=== PATIENT | female | born 1960 | race Two or more races ===

== ENCOUNTER 2017-07-01 12:23 | Inpatient (IN) | payer MEDICARE, OTHER ==
[~2017-07-01] VITALS: Ht 160 cm; Wt 49.9 kg
[2017-07-01] MEDS ORDERED: TEMAZEPAM 7.5 MG CAPSULE PO PRN (18:00)
[2017-07-01] MEDS ORDERED: LORAZEPAM 0.5 MG TABLET PO PRN (18:00)
[2017-07-01] MEDS ORDERED: ACETAMINOPHEN 325 MG TABLET PO PRN (18:00)
[2017-07-01] MEDS ORDERED: MAG HYDROX/AL HYDROX/SIMETH 30 ML UDC PO PRN (18:00)
[2017-07-01] MEDS ORDERED: MAGNESIUM HYDROXIDE 30 ML UDC PO PRN (18:00)
[2017-07-01] MEDS ORDERED: FURO-145 PO (18:03)
[2017-07-01] MEDS ORDERED: IBUP-1955 PO (18:03)
[2017-07-01] MEDS ORDERED: MELA5TAB PO (18:03)
[2017-07-01] MEDS ORDERED: CHOL100044 PO (18:03)
[2017-07-01] MEDS ORDERED: ASPI81TA2 PO (18:03)
[2017-07-01] MEDS ORDERED: POTA10CA43 PO (18:03)
[2017-07-01] MEDS ORDERED: CLOP75TA2 PO (18:03)
[2017-07-01] MEDS ORDERED: PROG200C3 PO (18:03)
[2017-07-01] MEDS ORDERED: [UNRECOGNIZED DRUG - CODE] PO (18:03)
[2017-07-01] MEDS ORDERED: METO-295 PO (18:03)
[2017-07-01] MEDS ORDERED: OMEP20CA10 PO (18:03)
[2017-07-01] MEDS ORDERED: MULT-1168 PO (18:03)
--- NOTE | 2017-07-01 18:16 | NUR ---
DR. GUTIERREZ MADE AWARE OF THE ADMISSION AND GAVE ORDERS AND GENESIS RANDALL MADE AWARE OF THE ADMISSION AND TOLD TO RECONCILE MEDS AND SAID OK.
--- NOTE | 2017-07-01 18:20 | NUR ---
CALLED SHRUTHI SHEEHAN AT [phone] FOR THE NOTIFICATION OF THE ADMISSION AND NO ANSWER AND LEFT A MESSAGE.
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
[2017-07-01 18:34] VITALS: BP 111/88
[2017-07-01 20:00] VITALS: BP 135/84
[2017-07-01] MEDS: IBUPROFEN 600 MG TABLET PO SCH (21:00)
[2017-07-01] MEDS: METOCLOPRAMIDE HCL 10 MG TABLET PO SCH (21:00)
[2017-07-01] MEDS: FAMOTIDINE (20 MG) 20 MG TABLET PO SCH (21:00)
[2017-07-01] MEDS: PROGESTERONE,MICRONIZED 100 MG CAPSULE PO SCH (21:20)
[2017-07-02 00:31] VITALS: BP 127/68
[2017-07-02 07:35] LABS: ALBUMIN 3.3 g/dL (3.4-5.0); BILIRUBIN,TOTAL 0.5 mg/dL (0.2-1.0); CALCIUM, SERUM 9.1 mg/dL (8.5-10.1); CREATININE 0.6 mg/dL (0.6-1.3); POTASSIUM 3.7 mmol/L (3.5-5.1); TOTAL PROTEIN, SERUM 6.8 g/dL (6.4-8.2)
[2017-07-02 08:00] VITALS: BP 136/90
[2017-07-02] MEDS: ASPIRIN 81 MG TAB.CHEW PO SCH (08:42)
[2017-07-02] MEDS: DOCUSATE SODIUM 250 MG CAPSULE PO SCH (08:42)
[2017-07-02] MEDS: CHOLECALCIFEROL 1,000 UNIT TABLET (VIT D3) PO SCH (08:43)
[2017-07-02] MEDS: METOCLOPRAMIDE HCL 10 MG TABLET PO SCH ×4 (08:43→21:00)
[2017-07-02] MEDS: IBUPROFEN 600 MG TABLET PO SCH ×4 (08:43→21:00)
[2017-07-02] MEDS: FAMOTIDINE (20 MG) 20 MG TABLET PO SCH ×2 (08:43→21:00)
[2017-07-02] MEDS: CLOPIDOGREL BISULFATE 75 MG TABLET PO SCH (08:43)
[2017-07-02] MEDS ORDERED: POTASSIUM CHLORIDE 20 MEQ TAB.PRT.SR PO SCH (09:00)
[2017-07-02] MEDS ORDERED: FUROSEMIDE 20 MG TABLET PO SCH (09:00)
[2017-07-02] MEDS ORDERED: DOCUSATE CALCIUM (240 MG) 240 MG CAPSULE PO SCH (09:00)
[2017-07-02] MEDS: SERTRALINE HCL 25 MG TABLET PO SCH (12:42)
--- NOTE | 2017-07-02 13:59 | NUR ---
[id number]: NOTIFIED DR. RANDALL ABOUT LAB RESULTS: NA= 146, ALBUMIN = 3.3, LDL CHOLESTEROL= 114 AND PT REFUSED BREAKFAST AND LUNCH. DR. RANDALL ORDERED BOOST CHOCOLATE BID.
[2017-07-02 15:40] VITALS: BP 120/74
[2017-07-02] MEDS: BOOST PLUS FOOD-CHOCLATE 237 ML BOX PO SCH (17:00)
--- NOTE | 2017-07-02 18:13 | NUR ---
[id number]: NOTIFIED DR. GENESIS RANDALL ABOUT PT REFUSING TO EAT DINNER AND DRINK BOOST. NO NEW ORDERS GIVEN AT THIS TIME
[2017-07-02 20:17] VITALS: BP 112/71
[2017-07-02] MEDS: PROGESTERONE,MICRONIZED 100 MG CAPSULE PO SCH (21:28)
[2017-07-03] MEDS: BOOST PLUS FOOD-CHOCLATE 237 ML BOX PO SCH ×2 (08:00→15:56)
[2017-07-03 08:11] VITALS: BP 100/53
[2017-07-03] MEDS: ASPIRIN 81 MG TAB.CHEW PO SCH (08:18)
[2017-07-03] MEDS: CLOPIDOGREL BISULFATE 75 MG TABLET PO SCH (08:19)
[2017-07-03] MEDS: CHOLECALCIFEROL 1,000 UNIT TABLET (VIT D3) PO SCH (08:20)
[2017-07-03] MEDS: DOCUSATE SODIUM 250 MG CAPSULE PO SCH (08:26)
[2017-07-03] MEDS: METOCLOPRAMIDE HCL 10 MG TABLET PO SCH ×4 (08:26→21:00)
[2017-07-03] MEDS: IBUPROFEN 600 MG TABLET PO SCH ×4 (08:26→21:00)
[2017-07-03] MEDS: FAMOTIDINE (20 MG) 20 MG TABLET PO SCH ×2 (08:26→21:00)
[2017-07-03 09:48] LABS: APPEARANCE,URINE CLOUDY (CLEAR); BILIRUBIN,URINE 1+ (NEGATIVE); BLOOD, URINE NEGATIVE Ery/uL (NEGATIVE); COLOR,URINE DARK YELLO (YELLOW); KETONES,URINE 3+ (NEGATIVE); LEUKOCYTE ESTERASE ,URINE TRACE (NEGATIVE); NITRITE, URINE NEGATIVE (NEGATIVE); PROTEIN,URINE TRACE mg/dl (NEGATIVE); UGLUCOSE NEGATIVE (NEGATIVE); UROBILINOGEN,URINE 0.2 EU/dL (0.2)
--- NOTE | 2017-07-03 10:20 | NUR ---
[id number]: BLOOD SUGAR IS 44 MG/DL AND NOTIFIED DR. HARP ORDERED D5NS 1,000 ML IV. PT REFUSED TO HAVE IV STARTED . AFTER CONVINCING PT AGREED TO EAT A CUP OF ICE-CREAM AND ONE CUP OF ORANGE JUICE WITH SUGAR.
[2017-07-03 10:24] LABS: BACTERIA,URINE Few /HPF (None Seen); MUCUS,URINE Many /LPF (None Seen); RBC,URINE NONE SEEN /HPF (0-2); SQUAMOUS EPITHELIAL CELL,UR None Seen /HPF (None Seen); WBC,URINE 0-2 /HPF (0-3)
[2017-07-03] MEDS ORDERED: IV D5/ 0.9% NACL 1,000 ML IV ONE (10:30)
--- NOTE | 2017-07-03 10:30 | NUR ---
[id number]: DR. HARP ORDERED TO HOLD D5 NS 1,000 ML, IF PT CONTINUES TO EAT THE ICE CREAM.
--- NOTE | 2017-07-03 11:30 | NUR ---
[id number]: NOTIFIED DR. HARP ABOUT LAB RESULTS ON 07/03/17: URINE APPEARANCE= CLOUDY, URINE KETONES= 3+H, URINE BILIRUBIN= 1+H. NO NEW ORDERS GIVEN
--- NOTE | 2017-07-03 11:53 | NUR ---
[id number]: BLOOD SUGAR IS 44 MG/DL. GAVE PT ANOTHER CUP OF ORANGE WITH 2 PACKETS OF SUGAR.
[2017-07-03] MEDS: SERTRALINE HCL 25 MG TABLET PO SCH (13:00)
--- NOTE | 2017-07-03 15:34 | NUR ---
Received a message from Chuck Cody that had called and complained. This gag writer called him at [phone] as assigned social security benefits interviewer could not be reached at the time. He said he was living in [place] now and that has an apartment in [place]. She is soon to be moving to [place] per . He said he was recording every conversation with our facility and the conversation he was having with this social security benefits interviewer. Dr Macias was consulted and will discharge this pt. tomorrow. Sanitation Superintendent called Michael [phone] to arrange transportation tomorrow. He said they will arrive around 11.30 am on Jul.04. Emily agreed to arranger follow up and discharge.
[2017-07-03 16:00] VITALS: BP 108/76
--- NOTE | 2017-07-03 16:56 | NUR ---
Initial Discharge Plan: Pt resides at [address], [place] [id number]; [facility]. Pt lives with one other roomate however reports "not having any relationship" with her. Pt would like to return home upon discharge. SANDY spoke to Georgie Beaulieu who discussed pts discharge plan with pts . Pt will be discharged tomorrow,07/04/17 at 11:30 am. Michael will arrange for transportation. Pts , Kaushal has been notified of pts discharge plan. Sw will follow up and ensure pt is properly discharged.
[2017-07-03 20:04] VITALS: BP 107/84
--- NOTE | 2017-07-03 20:10 | NUR ---
GPS RN NOTE: PATIENT BS = 55, PATIENT AWAKE, ALERT AND ORIENTED X3, OFFERED OJ, SANDWICH. PATIENT REFUSED AND WANTED ICE CREAM. ACCORDING TO THE PATIENT, ICE CREAM IS THE PROMISE OF THE DOCTOR TO HER. ICE CREAM PROVIDED, WILL RECHECK BLOOD SUGAR POST 30MINS. WILL CONTINUE TO MONITOR Addendum: 07/03/17 at 2100 by JOSUE WRIGHT II, RN CORRECTION: BS = 53 AND NOT 55
--- NOTE | 2017-07-03 20:40 | NUR ---
GPS RN NOTE: RECHECKED PATIENT BLOOD SUGAR = 37, PATIENT STILL REFUSED SANDWICH AND ORANGE JUICE. PER PATIENT SHE IS GOING TO EAT HER ICE CREAM. NOTIFIED DR. RAWLS AND SINAI SAID TO NOTIFY THE PSYCH DOCTOR BECAUSE THAT IS A MENTAL ISSUE THAT IS INTERFERING WITH THE MEDICAL ISSUES. LEFT MESSAGE TO DR. GUTIERREZ..
[2017-07-03] MEDS: PROGESTERONE,MICRONIZED 100 MG CAPSULE PO SCH (22:00)
--- NOTE | 2017-07-03 22:00 | NUR ---
gps rn note Patient refused pm scheduled medications. Explained the risk and benefits but patient still refused. Patient alert and oriented x 3. Respected patient's rights
--- NOTE | 2017-07-03 22:10 | NUR ---
GPS RN NOTE: PATIENT REQUESTED HER BLOOD SUGAR TO BE CHECKED AND AGREED FOR IV INSERTION AND D50 ADMINISTRATION IF THE BLOOD SUGAR IS STILL LOW. PATIENT IS ASYMPTOMATIC. BS = 106. PATIENT NOTED TO BE VERY HAPPY OF THE RESULT. WILL CONTINUE TO MONITOR
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
[2017-07-04 07:07] LABS: BASOPHILS % (AUTO) 0.8 % (0.0-2.0); EOSINOPHILS # (AUTO) 0.1 /CMM (0.0-0.7); EOSINOPHILS % (AUTO) 2.5 % (0.0-6.0); HEMATOCRIT 45 % (33-45); HEMOGLOBIN 14.6 g/dL (11.5-14.8); LYMPHOCYTES # (AUTO) 1.1 /CMM (0.8-4.8); LYMPHOCYTES % (AUTO) 22.5 % (20.0-44.0); MEAN CORPUSCULAR HEMOGLOBIN 31 PG (26.0-33.0); MEAN CORPUSCULAR HGB CONC 33 g/dl (31.0-36.0); MEAN CORPUSCULAR VOLUME 94 fL (82-100); MONOCYTES # (AUTO) 0.4 /CMM (0.1-1.30); NEUTROPHILS # (AUTO) 3.2 /CMM (1.8-8.9); NEUTROPHILS % (AUTO) 66.2 % (43.0-81.0); PLATELET COUNT (AUTO) 140 /CMM (150-450); RDW COEFFICIENT OF VARIATION 13.5 (11.5-15.0); RED BLOOD CELL COUNT(AUTO) 4.75 MIL/uL (4.0-5.2); WHITE BLOOD COUNT (AUTO) 4.8 K/uL (4.3-11.0)
[2017-07-04 07:23] LABS: CALCIUM, SERUM 9.3 mg/dL (8.5-10.1); CREATININE 0.9 mg/dL (0.6-1.3); POTASSIUM 3.6 mmol/L (3.5-5.1)
[2017-07-04] MEDS: BOOST PLUS FOOD-CHOCLATE 237 ML BOX PO SCH ×2 (08:00→17:00)
[2017-07-04 08:27] VITALS: BP 95/60
[2017-07-04] MEDS: ASPIRIN 81 MG TAB.CHEW PO SCH (08:40)
[2017-07-04] MEDS: CLOPIDOGREL BISULFATE 75 MG TABLET PO SCH (08:40)
[2017-07-04] MEDS: CHOLECALCIFEROL 1,000 UNIT TABLET (VIT D3) PO SCH (08:40)
[2017-07-04] MEDS: FAMOTIDINE (20 MG) 20 MG TABLET PO SCH ×2 (08:42→21:56)
[2017-07-04] MEDS: METOCLOPRAMIDE HCL 10 MG TABLET PO SCH ×4 (08:42→21:56)
[2017-07-04] MEDS: IBUPROFEN 600 MG TABLET PO SCH ×4 (08:42→21:56)
[2017-07-04] MEDS: DOCUSATE SODIUM 250 MG CAPSULE PO SCH (08:42)
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
--- NOTE | 2017-07-04 12:23 | NUR ---
Per Georgie Beaulieu, automatic trimming sewer she was unable to reach pts at the following phone (there was no answer). Another attempt was made to the following # , however number has been disconnected. SW will continue to follow up.
[2017-07-04] MEDS: SERTRALINE HCL 25 MG TABLET PO SCH (13:00)
--- NOTE | 2017-07-04 13:54 | NUR ---
GPS/RN-NOTES PATIENT REFUSED ALL 1300 MEDICATIONS DESPITE EXPLANATIONS RISK AND BENEFITS. OFFERED X3.
--- NOTE | 2017-07-04 14:46 | NUR ---
GPS/RN NOTES PATIENT IN HER ROOM READING BOOKS,CALM AND COOPERATIVE AT THIS TIME NO ACUTE DISTRESS NOTED.ENDORSED TO CHARGE NURSE FOR CONTINUITY OF CARE
[2017-07-04 16:26] VITALS: BP 104/65
--- NOTE | 2017-07-04 17:27 | NUR ---
GPS/RN-NOTES PATIENT REFUSED ALL 1700 MEDICATIONS DESPITE EXPLANATIONS RISK AND BENEFITS. OFFERED X3.
[2017-07-04 19:43] VITALS: BP 112/72
[2017-07-04] MEDS ORDERED: PROGESTERONE,MICRONIZED 100 MG CAPSULE PO SCH (22:00)
[2017-07-05] MEDS: BOOST PLUS FOOD-CHOCLATE 237 ML BOX PO SCH ×2 (08:00→17:00)
[2017-07-05 08:41] VITALS: BP 130/69
[2017-07-05] MEDS: CLOPIDOGREL BISULFATE 75 MG TABLET PO SCH (09:00)
[2017-07-05] MEDS: METOCLOPRAMIDE HCL 10 MG TABLET PO SCH ×5 (09:00→20:50)
[2017-07-05] MEDS: FAMOTIDINE (20 MG) 20 MG TABLET PO SCH ×3 (09:00→20:49)
[2017-07-05] MEDS: IBUPROFEN 600 MG TABLET PO SCH ×5 (09:00→20:49)
[2017-07-05] MEDS: CHOLECALCIFEROL 1,000 UNIT TABLET (VIT D3) PO SCH (09:00)
[2017-07-05] MEDS: DOCUSATE SODIUM 250 MG CAPSULE PO SCH (09:00)
[2017-07-05] MEDS: ASPIRIN 81 MG TAB.CHEW PO SCH (09:00)
[2017-07-05] MEDS: SERTRALINE HCL 25 MG TABLET PO SCH (13:00)
[2017-07-05 15:55] VITALS: BP 113/76
--- NOTE | 2017-07-05 16:04 | NUR ---
Discharge Planning: SANDY called and spoke with pt's , Kaushal [phone]. Kaushal expressed concerns about his 's hospitalization. SANDY told Kaushal that she will check in on his and will call him with an update. SANDY spoke with pt who stated she wanted to go home via train. There were concerns regarding patient's safety, as her blood sugar levels are low. SANDY explained that patient would be unable to go by train, but that SW will attempt to secure transportation. SANDY called Michael [phone] and asked if it was possible to pick patient up the next day. Michael stated that he would send a team out there at 11am. SANDY informed patient and her , Kaushal, who seemed to be pleased with the news.
[2017-07-05 20:39] VITALS: BP 99/71
--- NOTE | 2017-07-05 21:00 | NUR ---
GPS RN NOTES: PATIENT REFUSED ALL 2100 SCHEDULED MEDICATIONS. OFFERED X3. DESPITE OF EXPLANATION THE RISKS AND BENEFITS. PT STILL REFUSED. WILL CONTINUE TO MONITOR.
--- NOTE | 2017-07-06 06:22 | NUR ---
GPS RN NOTES: PATIENT BLOOD SUGAR @0500 63MG/DL. OFFERED VANILLA PUDDING. RECHECKED BS 217MG/DL. PATIENT STABLE AT THIS TIME. NO S/S OF HYPO/HYPERGLYCEMIA NOTED. WILL CONTINUE TO MONITOR AND WILL ENDORSED TO THE NEXT SHIFT FOR CONTINUITY OF CARE.
--- NOTE | 2017-07-06 06:40 | NUR ---
GPS RN NOTES: DR. HOPE AND DR. DELEON AWARE THAT PATIENT REFUSED TO EAT, AND ALSO MD'S NOTIFIED OF BLOOD SUGAR RESULTS QSHIFT. PER MORNING SHIFT NURSE ENDORSEMENT.
[2017-07-06] MEDS: BOOST PLUS FOOD-CHOCLATE 237 ML BOX PO SCH (08:00)
[2017-07-06] MEDS: ASPIRIN 81 MG TAB.CHEW PO SCH (08:51)
[2017-07-06] MEDS: CLOPIDOGREL BISULFATE 75 MG TABLET PO SCH (08:51)
[2017-07-06] MEDS: CHOLECALCIFEROL 1,000 UNIT TABLET (VIT D3) PO SCH (08:51)
[2017-07-06] MEDS: IBUPROFEN 600 MG TABLET PO SCH (08:53)
[2017-07-06] MEDS: METOCLOPRAMIDE HCL 10 MG TABLET PO SCH (08:53)
[2017-07-06] MEDS: FAMOTIDINE (20 MG) 20 MG TABLET PO SCH (08:53)
[2017-07-06] MEDS: DOCUSATE SODIUM 250 MG CAPSULE PO SCH (08:53)
--- NOTE | 2017-07-06 09:16 | NUR ---
DR. DELEON COVERING FOR DR. GUTIERREZ GAVE AN ORDER TO D/C PT. TO HOME TODAY AND TO FOLLOW UP WITH PSYCH AND MEDICAL DOCTORS.
--- NOTE | 2017-07-06 09:26 | NUR ---
Discharge Planning: Patient will be discharged home; [address], [place] [address] via transportation, arranged through Michael, at 11am. Pts , Kaushal [phone] has been made aware and is in agreement. Patient has an appointment with her Body And Fender Worker, Dr. Corcoran, [address] [place] [address]. [facility] [id number]; ; tomorrow 07/07/17 at 11 am. Patient was [facility] [place] [facility] [address] [facility] [address]; [phone] for psychiatric services. Pt is in agreement with her discharge plan. Pts , Kaushal Morrison has been notified. SW will follow up to ensure pt is properly discharged.
[2017-07-06 09:44] VITALS: BP_SYST 142
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
== END 2017-07-06 11:38 | disposition home or self-care (01) | DRG 885 ==
LOC: GPS 17:04 → EDSEX 17:04 → GPS 07-03 16:13
PROVIDERS: ADMIT Psychiatry & Neurology Psychosomatic Medicine; ATTEND Nurse Practitioner Acute Care
DX: F29 Unspecified psychosis not due to a substance or known physiological condition (principal); E43 Unspecified severe protein-calorie malnutrition; I11.0 Hypertensive heart disease with heart failure; E87.0 Hyperosmolality and hypernatremia; I50.32 Chronic diastolic (congestive) heart failure; E86.0 Dehydration; F23 Brief psychotic disorder; Z68.1 Body mass index [BMI] 19.9 or less, adult; F43.10 Post-traumatic stress disorder, unspecified; F32.9 Major depressive disorder, single episode, unspecified; K21.9 Gastro-esophageal reflux disease without esophagitis; J45.909 Unspecified asthma, uncomplicated; M19.90 Unspecified osteoarthritis, unspecified site; Z86.73 Personal history of transient ischemic attack (TIA), and cerebral infarction without residual deficits; Z87.891 Personal history of nicotine dependence; I25.10 Atherosclerotic heart disease of native coronary artery without angina pectoris; Z91.19 Patient's noncompliance with other medical treatment and regimen; F03.90 Unspecified dementia, unspecified severity, without behavioral disturbance, psychotic disturbance, mood disturbance, and anxiety; M62.50 Muscle wasting and atrophy, not elsewhere classified, unspecified site
CPT/HCPCS: 36415; 80048-TC; 80053-TC; 80061-TC; 81000-TC; 82962-TC; 85025-TC; 87081-TC; 87086-TC; J7042; J8597